=== PATIENT | female | born 1995 | race Caucasian/White ===

== ENCOUNTER 2016-10-13 11:42 | Emergency (ER) | payer BC ==
[2016-10-13 12:22] VITALS: BP 119/53
[2016-10-13] MEDS ORDERED: Acetaminophen/oxyCODONE 325-5 MG Tab PO ONE (12:45)
--- NOTE | 2016-10-13 12:49 | EDM.PDOC ---
ED HPI GENERAL MEDICAL PROBLEM - General Chief Complaint: Laceration Stated Complaint: HAND SMASHED IN BOBCAT Time Seen by Provider: 10/13/16 12:47 Source of Information: Reports: Patient, Family History Limitations: Reports: No Limitations - History of Present Illness INITIAL COMMENTS - FREE TEXT/NARRATIVE: pt got her left hand caught between a auger blade and a bobcat. She a crushing injury to the ring finger and the ring is bent. Onset: Today Duration: Hour(s): Location: Reports: Upper Extremity, Left Associated Symptoms: Reports: Other ( Pt has some numbness in the fingers. ) - Related Data Allergies Allergy/AdvReac Type Severity Reaction Status Date / Time No Known Allergies Allergy Verified 10/13/16 12:23 Home Meds: Home Meds NK [No Known Home Meds] 10/13/16 [History] Past Medical History Psychiatric History: Reports: Anxiety, Depression Social & Family History - Tobacco Use Smoking Status *Q: Never Smoker Second Hand Smoke Exposure: No - Caffeine Use Caffeine Use: Reports: None - Recreational Drug Use Recreational Drug Use: No ED ROS GENERAL - Review of Systems Review Of Systems: See Below Constitutional: Reports: No Symptoms HEENT: Reports: No Symptoms Respiratory: Reports: No Symptoms Cardiovascular: Reports: No Symptoms Endocrine: Reports: No Symptoms GI/Abdominal: Reports: No Symptoms : Reports: No Symptoms Skin: Reports: Other (pt has an injury to the left hand This was a crushing injury. ) Neurological: Reports: No Symptoms ED EXAM, SKIN/RASH Exam: See Below Text/Narrative:: pt arrived with pain in the laft hand ehn she got caught between the blades of an auger and a bobcat. She has a 1/2 inch laceration between the middle and ring finger. Exam Limited By: Intoxication General Appearance: Alert, Anxious Ears: Normal TMs Nose: Normal Inspection Throat/Mouth: Normal Inspection Head: Atraumatic Neck: Normal Inspection Respiratory/Chest: No Respiratory Distress Cardiovascular: Regular Rate, Rhythm GI/Abdominal: Soft (Female) Exam: Deferred Rectal (Female) Exam: Deferred Back Exam: Normal Inspection Extremities: Other (1/2 lac between the middle and the ring finger There i very slight numbness present. ) Psychiatric: Normal Affect Course - Vital Signs Last Recorded V/S: Last Vital Signs Temp 36.6 C 10/13/16 12:22 Pulse 55 L 06/24/17 12:22 Resp 16 10/13/16 12:22 BP 119/53 L 10/13/16 12:22 Pulse Ox 99 10/13/16 12:22 - Orders/Labs/Meds Orders: Active Orders 24 hr Category Date Time Status Vaccines to be Administered [RC] PER UNIT ROUTINE Care 10/13/16 13:34 Active Fingers Fourth Digit Lt F3 [CR] Stat Exams 10/13/16 13:06 Taken Hand Comp Min 3V Lt [CR] Stat Exams 10/13/16 12:45 Taken Meds: Medications Discontinued Medications Generic Name Dose Route Start Last Admin Trade Name Freq PRN Reason Stop Dose Admin Bacitracin 1 dose 10/13/16 13:05 Bacitracin Oint 1 Gm TOP 10/13/16 13:06 ONETIME ONE Diphtheria/Tetanus/Acell Pertussis 0.5 ml 10/13/16 13:34 Adacel IM 10/13/16 13:35 .ONCE ONE Lidocaine HCl 20 ml 10/13/16 13:04 10/13/16 13:35 Xylocaine 1% INJECT 10/13/16 13:05 20 ml ONETIME ONE Administration Oxycodone/Acetaminophen 1 tab 10/13/16 12:45 10/13/16 13:32 Percocet 325-5 Mg PO 10/13/16 12:46 1 tab ONETIME ONE Administration - Re-Assessments/Exams Free Text/Narrative Re-Assessment/Exam: 10/13/16 14:11 hand xray showed a questionable fracture under the ring The finger was numbed up and the ring was cut off . A xray of the ring finger showed a undisplaced fracture of the ring finger. The wound was irrigated and closed with 5-0 chromic and 5-0 prolene. The wound was dressed with bacatracin and the finger was splinted. Departure - Departure Time of Disposition: 14:14 Disposition: Home, Self-Care 01 Condition: Fair Clinical Impression: Fracture of distal phalanx of ring finger, Laceration - Discharge Information Forms: ED Department Discharge Care Plan Goals: leave present dressing on for 2 days then change apply just a dry dressing and a splint see regular Dr for stitch removsl in 8 day. reevaluate the fracture. keflex 500mg tid, tylenol 3 1 tab q6h prn for pain - My Orders Last 24 Hours: My Active Orders 10/13/16 12:45 Hand Comp Min 3V Lt [CR] Stat 10/13/16 13:06 Fingers Fourth Digit Lt F3 [CR] Stat 10/13/16 13:34 Vaccines to be Administered [RC] PER UNIT ROUTINE - Assessment/Plan Last 24 Hours: My Active Orders 10/13/16 12:45 Hand Comp Min 3V Lt [CR] Stat 10/13/16 13:06 Fingers Fourth Digit Lt F3 [CR] Stat 10/13/16 13:34 Vaccines to be Administered [RC] PER UNIT ROUTINE
[2016-10-13] MEDS ORDERED: Lidocaine 1% 20 ML MDV INJECT ONE (13:04)
[2016-10-13] MEDS ORDERED: Bacitracin Oint 1 GM U/D Packet TOP ONE (13:05)
[2016-10-13] MEDS ORDERED: Diphtheria,Pertussis(Acell),Tetanus Vaccine 0.5 ML SDV IM ONE (13:34)
--- NOTE | 2016-10-15 10:54 | CR ---
Fingers Fourth Digit Lt F3 HISTORY: Crush injury COMPARISON: Films of the left hand 10/13/2016. FINDINGS: Subtle oblique fracture of the midshaft of the proximal phalanx of the fourth finger. No o ther fractures seen. Ring has now been removed off the fourth finger.
--- NOTE | 2016-10-15 10:55 | CR ---
Hand Comp Min 3V Lt HISTORY: Crush injury COMPARISON: None FINDINGS: Deformity to the patient's ring. No displaced fracture seen.
== END 2016-10-13 14:36 | disposition home or self-care (01) ==
LOC: JP.ED 11:42
DX: S62.635A Displaced fracture of distal phalanx of left ring finger, initial encounter for closed fracture (principal); S61.215A Laceration without foreign body of left ring finger without damage to nail, initial encounter; W23.0XXA Caught, crushed, jammed, or pinched between moving objects, initial encounter
CPT/HCPCS: 12001; 73130; 73140; 90471; 90715; 99283; A9270

== ENCOUNTER 2016-10-20 09:50 | Emergency (ER) | payer BC ==
[2016-10-20 10:07] VITALS: BP 108/56
--- NOTE | 2016-10-20 10:41 | EDM.PDOC ---
ED HPI GENERAL MEDICAL PROBLEM - General Chief Complaint: Wound Recheck Stated Complaint: STITCHES REMOVED Time Seen by Provider: 10/20/16 10:38 Source of Information: Reports: Patient History Limitations: Reports: No Limitations - History of Present Illness INITIAL COMMENTS - FREE TEXT/NARRATIVE: Had sutures placed in her left hand about one week ago no issues wound is doing well she has not followed up with her primary care for her fractured phalanx - Related Data Allergies Allergy/AdvReac Type Severity Reaction Status Date / Time No Known Allergies Allergy Verified 10/20/16 10:30 Home Meds: Home Meds NK [No Known Home Meds] 10/13/16 [History] Past Medical History Psychiatric History: Reports: Anxiety, Depression Social & Family History - Tobacco Use Smoking Status *Q: Never Smoker Second Hand Smoke Exposure: No - Caffeine Use Caffeine Use: Reports: None - Recreational Drug Use Recreational Drug Use: No ED ROS GENERAL - Review of Systems Review Of Systems: See Below Skin: Reports: Wound ED EXAM, GENERAL - Physical Exam Exam: See Below Free Text/Narrative:: Examination wound clean dry and intact full range of motion digits 1-3 and 5 limited range of motion of digit #4, after suture removal finger was replaced in alumina splint Course - Vital Signs Last Recorded V/S: Last Vital Signs Temp 98.1 F 10/20/16 10:04 Pulse 56 L 10/20/16 10:04 Resp 16 10/20/16 10:04 BP 108/56 L 10/20/16 10:04 Pulse Ox 100 10/20/16 10:04 Departure - Departure Time of Disposition: 10:40 Disposition: Home, Self-Care 01 Condition: Good Clinical Impression: Visit for suture removal - Discharge Information Forms: ED Department Discharge Additional Instructions: Please follow-up with your primary care provider with a possible referral to orthopedics upon return home - Assessment/Plan Plan: Assessment Acuity = acute Site and laterality = suture removal with fractured phalanx Etiology = trauma Manifestations = none Location of injury = Home Lab values = none Plan She was provided a CD of her imaging studies and recommended she follow-up with her primary care with possible referral to orthopedics upon return home Patient was in agreement with the plan all questions were answered, they were instructed to return to the emergency department or call for worsening symptoms. This note was dictated using [employer] voice recognition software please call with any questions.
== END 2016-10-20 11:18 | disposition home or self-care (01) ==
LOC: JP.ED 09:50
DX: S61.215D Laceration without foreign body of left ring finger without damage to nail, subsequent encounter (principal); F41.9 Anxiety disorder, unspecified; F32.9 Major depressive disorder, single episode, unspecified
CPT/HCPCS: 99282